=== PATIENT | male | born 1990 ===

== ENCOUNTER 2018-05-30 23:24 | Emergency (ER) | payer OTHER ==
[2018-05-31 00:05] VITALS: O2SAT 99
[2018-05-31] MEDS ORDERED: Oxycodone/Acetaminophen 5/325 mg Tab PO STA (00:38)
[2018-05-31] MEDS ORDERED: Oxycodone/Acetaminophen 5/325 mg Tab ONE (00:51)
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
[2018-05-31 03:00] VITALS: BP 127/74; PULSE 55; RESP 14; TEMP 98.5
== END 2018-05-31 02:55 | disposition home or self-care (01) ==
LOC: H.ER 23:24
DX: F11.20 Opioid dependence, uncomplicated (principal); F17.210 Nicotine dependence, cigarettes, uncomplicated; G89.29 Other chronic pain